=== PATIENT | male | born 1970 | race Caucasian/White ===

== ENCOUNTER 2017-06-16 10:09 | Emergency (ER) | payer OTHER ==
--- NOTE | 2017-06-16 10:56 | XR ---
EXAMINATION TYPE: XR shoulder complete LT , 3 VIEWS DATE OF EXAM ORDERED: 06/16/2017 HISTORY: Pain. COMPARISON: None. FINDINGS: No fracture, dislocation or other acute osseous lesion is seen. There are mild hypertrophi c changes present in the left AC joint. IMPRESSION: 1. NO ACUTE OSSEOUS LESION. 2. MILD DEGENERATIVE CHANGE.
--- NOTE | 2017-06-16 10:57 | XR ---
EXAMINATION TYPE: XR elbow complete LT , 3 VIEWS DATE OF EXAM ORDERED: 06/16/2017 HISTORY: Pain. COMPARISON: None. FINDINGS: No fracture, dislocation or elbow joint effusion is seen. There is a prominent olecranon s pur. IMPRESSION: 1. NO ACUTE OSSEOUS LESION. 2. OLECRANON SPUR.
--- NOTE | 2017-06-16 11:13 | ED ---
Upper Extremity HPI - General Chief Complaint: Extremity Injury, Upper Stated Complaint: left elbow swelling Time Seen by Provider: 06/16/17 10:30 Source: patient, RN notes reviewed Mode of arrival: ambulatory Limitations: no limitations - History of Present Illness Initial Comments: 46-year-old male present emergency department with chief complaint of left shoulder, left elbow pain. Patient states over the summer he injured his left shoulder which she states he was trying to jump over a fence with states he caught himself and states he injured his left shoulder. He states she's had limited range of motion of his left shoulder states he has pain and unable to lift much above his shoulder height. Patient states more recently he's been having decreased range of motion of his left shoulder and worsening pain with paresthesias in his digits 2 and 3. Patient is right-hand dominant. Patient states she's never been evaluated for either his shoulder or elbow. - Related Data Home Medications Medication Instructions Recorded Confirmed Ibuprofen [Motrin] 600 mg PO Q6HR PRN 06/16/17 06/16/17 Tamsulosin HCl [Flomax] 0.4 mg PO Q48H 06/16/17 06/16/17 Previous Rx's Medication Instructions Recorded Hydrocodone/Acetaminophen [[place] 1 tab PO Q6HR PRN #20 tab 06/16/17 5-325] methylPREDNISolone [Medrol Dose 4 mg PO DIRECTED #1 pack 06/16/17 Pack] Allergies Allergy/AdvReac Type Severity Reaction Status Date / Time amoxicillin Allergy Unknown Verified 06/16/17 10:29 Childhood bee venom protein (honey bee) Allergy Swelling Verified 06/16/17 10:29 Penicillins Allergy Unknown Verified 06/16/17 10:29 Childhood Review of Systems ROS Statement: Those systems with pertinent positive or pertinent negative responses have been documented in the HPI. ROS Other: All systems not noted in ROS Statement are negative. Past Medical History Past Medical History: No Reported History History of Any Multi-Drug Resistant Organisms: None Reported Past Surgical History: No Surgical Hx Reported Past Psychological History: No Psychological Hx Reported Smoking Status: Never smoker Past Alcohol Use History: Occasional Past Drug Use History: None Reported General Exam Limitations: no limitations General appearance: alert, in no apparent distress Respiratory exam: Present: normal lung sounds bilaterally. Absent: respiratory distress, wheezes, rales, rhonchi, stridor Cardiovascular Exam: Present: regular rate, normal rhythm, normal heart sounds. Absent: systolic murmur, diastolic murmur, rubs, gallop, clicks Extremities exam: Present: other (Left shoulder decreased range of motion, pain above 90 along with unable to lift above 90 there is no obvious deformity no tenderness over the ac joint, protohistorian strength is equal bilaterally, patient unable to fully extend left elbow patient has pain with pronation supination.) Course Vital Signs 06/16/17 10:10 Temperature 98.7 F Pulse Rate 90 Respiratory 18 Rate Blood Pressure 148/91 O2 Sat by Pulse 99 Oximetry Medical Decision Making - Medical Decision Making 46-year-old male presented for left shoulder pain and left elbow pain. This appears to be a left rotator cuff injury in which the patient has not been moving his shoulder elbow much as cause adhesive capsulitis. Patient does have some underlying lateral epicondylitis and carpal tunnel, dictating to symptoms. Disposition Clinical Impression: Rotator cuff injury, Adhesive capsulitis of elbow Disposition: HOME SELF-CARE Condition: Stable Instructions: Rotator Cuff Injury (ED) Additional Instructions: Please return to the Emergency Department if symptoms worsen or any other concerns. Prescriptions: Hydrocodone/Acetaminophen [[place] 5-325] 1 tab PO Q6HR PRN #20 tab PRN Reason: Pain methylPREDNISolone [Medrol Dose Pack] 4 mg PO DIRECTED #1 pack Referrals: Frederick Mccann Jr, DO [Primary Care Provider] - 1-2 days Time of Disposition: 11:36
[2017-06-16 11:45] VITALS: BP 137/77; PULSE 82; RESP 16; TEMP 97.6
== END 2017-06-16 12:07 | disposition home or self-care (01) ==
LOC: EC 10:09
DX: S46.002A Unspecified injury of muscle(s) and tendon(s) of the rotator cuff of left shoulder, initial encounter (principal); M75.02 Adhesive capsulitis of left shoulder; Z79.899 Other long term (current) drug therapy; Z88.0 Allergy status to penicillin; Z91.030 Bee allergy status; Y93.39 Activity, other involving climbing, rappelling and jumping off
CPT/HCPCS: 99283

== ENCOUNTER 2019-01-02 07:21 | Emergency (ER) | payer MEDICAID, OTHER ==
[2019-01-02 07:25] VITALS: TEMP 98.5
[2019-01-02] MEDS ORDERED: ONDANSETRON ODT 4 MG TAB PO STA (07:40)
[2019-01-02] MEDS ORDERED: HYDROmorphone 1 MG/ML 1 ML SYRINGE IM STA (07:40)
--- NOTE | 2019-01-02 07:42 | ED ---
General Adult HPI - General Chief complaint: Extremity Injury, Lower Stated complaint: Knee pain/swelling Time Seen by Provider: 01/02/19 07:25 Source: patient, RN notes reviewed Mode of arrival: wheelchair Limitations: no limitations - History of Present Illness Initial comments: This a 48-year-old male who is sensitive emergency Department complaining of left knee pain. Patient states a few days ago he bent over her pop and pain ever since the pain is gotten worse and the swelling above the knee is gotten worse. Patient states he can move the knee however it is painful to do so. Patient denies any other injury. Patient denies any redness over the area. Patient denies any numbness or lower extremity weakness. - Related Data Previous Rx's Medication Instructions Recorded Ibuprofen [Motrin] 600 mg PO Q6HR PRN #20 tab 01/02/19 traMADol HCl [Ultram] 50 mg PO Q6HR PRN 3 Days #12 tab 01/02/19 Allergies Allergy/AdvReac Type Severity Reaction Status Date / Time amoxicillin Allergy Unknown Verified 01/02/19 07:43 Childhood bee venom protein (honey bee) Allergy Swelling Verified 01/02/19 07:43 Penicillins Allergy Unknown Verified 01/02/19 07:43 Childhood Review of Systems ROS Statement: Those systems with pertinent positive or pertinent negative responses have been documented in the HPI. ROS Other: All systems not noted in ROS Statement are negative. Past Medical History Past Medical History: No Reported History Additional Past Medical History / Comment(s): gout History of Any Multi-Drug Resistant Organisms: None Reported Past Surgical History: No Surgical Hx Reported Past Psychological History: No Psychological Hx Reported Smoking Status: Never smoker Past Alcohol Use History: Occasional Past Drug Use History: None Reported General Exam - General Exam Comments Initial Comments: GENERAL Patient is well-developed and well-nourished. Patient is in mild distress. EYES Patient's pupils are equal and round. Extraocular motion is intact SKIN Unremarkable NEURO The patient is alert and oriented 3 PYSCH Patient has normal interpersonal interactions. MUSCULOSKELETAL Left knee has a suprapatellar effusion and tenderness to palpation in that area difficult to assess ligament laxity secondary to pain. Limitations: no limitations Course Vital Signs 01/02/19 07:23 Temperature 98.5 F Pulse Rate 72 Respiratory 18 Rate Blood Pressure 122/78 O2 Sat by Pulse 98 Oximetry Medical Decision Making - Medical Decision Making Knee x-ray shows no acute fracture however there is a large effusion. Disposition Clinical Impression: Internal derangement of knee Disposition: HOME SELF-CARE Instructions (If sedation given, give patient instructions): Knee Pain (ED) Prescriptions: Ibuprofen [Motrin] 600 mg PO Q6HR PRN #20 tab PRN Reason: For pain traMADol HCl [Ultram] 50 mg PO Q6HR PRN 3 Days #12 tab PRN Reason: Pain Is patient prescribed a controlled substance at d/c from ED?: No Referrals: Frederick Mccann Jr, [Primary Care Provider] - 1-2 days Time of Disposition: 08:26
--- NOTE | 2019-01-02 08:19 | XR ---
EXAMINATION TYPE: XR knee complete LT DATE OF EXAM: 01/02/2019 COMPARISON: NONE HISTORY: Pain TECHNIQUE: Four views are submitted. FINDINGS: Mild narrowing the medial compartment knee joint. Large suprapatellar bursal fluid collection noted.. Osseous structures are intact. No acute fracture seen. IMPRESSION: 1. No acute fracture or dislocation. Large suprapatellar bursal fluid collection. If there is concer n for internal derangement correlate with MRI. 2. Mild osteoarthritis
[2019-01-02 09:15] VITALS: BP 124/75; PULSE 84; RESP 16
== END 2019-01-02 09:17 | disposition home or self-care (01) ==
LOC: EC 07:21
DX: S89.92XA Unspecified injury of left lower leg, initial encounter (principal); Z88.0 Allergy status to penicillin; Z91.030 Bee allergy status; X50.9XXA Other and unspecified overexertion or strenuous movements or postures, initial encounter
CPT/HCPCS: 73562; 99283; 96372; L1830 ×2; J1170

== ENCOUNTER → 2019-01-15 | Outpatient (CLI) | payer MEDICAID ==
--- NOTE | 2019-01-15 22:57 | MR ---
EXAMINATION TYPE: MR knee LT wo con DATE OF EXAM: 01/15/2019 COMPARISON: Left knee x-ray January 02, 2019. HISTORY: Lt knee swelling and pain x 3 wks after work injury. TECHNIQUE: Multiplanar, multisequence images of the knee is performed without IV contrast. FINDINGS: MEDIAL MENISCUS: Anterior and posterior horns are intact without tear. LATERAL MENISCUS: Anterior and posterior horns are intact without tear. CRUCIATE LIGAMENTS: The anterior and posterior cruciate ligaments are intact and unremarkable. COLLATERAL LIGAMENTS: The medial collateral ligament and lateral collateral ligament complex are inta ct . Increased fluid signal surrounds medial collateral ligament most prominent along the proximal po le. EXTENSOR MECHANISM: Visualized quadriceps and patellar tendons are intact. EFFUSION: There is moderate size suprapatellar joint effusion. POPLITEAL CYST: No popliteal/lazaro cyst. TRICOMPARTMENT SPACES: Mild narrowing medial tibiofemoral and patellofemoral compartments. No signifi cant spurring. CARTILAGE: Tricompartment articular cartilage is preserved. BONE MARROW SIGNAL: Small focus of heterogeneous increased T2 signal medial aspect fibular head is se en coronal image 23. OTHER: Some heterogeneous increased fluid signal is seen inferior aspect of Hoffa's fat pad medially sagittal image 17. IMPRESSION: 1. Mild MCL sprain. No full thickness meniscal or ligamentous tear. 2. Moderate-sized suprapatellar joint effusion. 3. Mild tricompartment degenerative changes. 4. Tiny area of osseous contusion involving the medial aspect of the fibular head. 5. Loss of normal fat inferior lateral aspect Hoffa's fat pad, correlate for fat pad impingement synd hilda.
== END | disposition home or self-care (01) ==
LOC: RADMRIMAIN 16:22
PROVIDERS: ATTEND Orthopaedic Surgery
DX: S83.412A Sprain of medial collateral ligament of left knee, initial encounter (principal); M17.12 Unilateral primary osteoarthritis, left knee